=== PATIENT | male | born 1950 | race Asian ===

== ENCOUNTER 2016-09-11 21:16 | Emergency (ER) | payer OTHER, MEDICAID ==
[~2016-09-11] VITALS: Ht 165.1 cm; Wt 77.1 kg
[2016-09-11] MEDS ORDERED: LIPI20 PO (21:35)
[2016-09-11] MEDS ORDERED: LITHIUM CARBON300 MG PO (21:36)
[2016-09-11] MEDS ORDERED: METFORMIN HCL1000 MG PO (21:37)
[2016-09-11] MEDS ORDERED: LOSARTAN POTASS50 M1 PO (21:37)
[2016-09-11] MEDS ORDERED: ACTOS15 M1 PO (21:37)
[2016-09-11] MEDS ORDERED: CALCIUM CITRAT1 EAC7 PO (21:41)
[2016-09-11] MEDS ORDERED: CENTRUM SILVER1 EAC3 PO (21:41)
[2016-09-11] MEDS ORDERED: ASPIR 8181 MG PO (21:42)
[2016-09-11 21:56] LABS: BASOPHIL % 0.7 % (0-2); PLATELET COUNT 197 x10^3mcL (130-400); RED CELL DISTRIBUTION WIDTH 13.3 % (11.5-14.5)
[2016-09-11] MEDS ORDERED: BUPROPION HCL150 M1 PO (21:59)
[2016-09-11] MEDS ORDERED: PROPRANOLOL HCL20 MG PO (22:00)
[2016-09-11 22:04] LABS: CARBON DIOXIDE 28.3 mmol/L (21-32); CHLORIDE SERUM 109 mmol/L (98-107); CREATININE SERUM 1.5 mg/dL (0.7-1.3); GFR1 49 mL/min; GLUCOSE SERUM 121 mg/dL (74-106); POTASSIUM SERUM 5.3 mmol/L (3.5-5.1); SODIUM SERUM 145 mmol/L (136-145)
[2016-09-11 22:08] LABS: ALBUMIN 3.8 g/dL (3.4-5.0); ALKALINE PHOSPHATASE 62 U/L (46-116); ALT/SGPT 40 U/L (16-63); AST/SGOT 30 U/L (15-37); BILIRUBIN TOTAL 0.98 mg/dL (0.20-1.00); TOTAL PROTEIN, SERUM 7.2 g/dL (6.4-8.2)
[2016-09-11 22:11] LABS: CHOLESTEROL 106 mg/dL (<200)
[2016-09-12 05:13] LABS: FREE T4 1.24 ng/dL (0.76-1.46); FREE THYROXINE INDEX 3.2 ug/dL (1.4-4.5); T4(THYROXINE) 9.2 ug/dL (4.7-13.3)
[2016-09-12 05:15] LABS: T3 TOTAL 0.94 ng/mL
[2016-09-12 06:04] VITALS: BP 144/72
== END 2016-09-12 06:04 | disposition short-term general hospital (02) ==
LOC: ED 21:16
PROVIDERS: Family Medicine; Specialist
DX: S02.81XA Fracture of other specified skull and facial bones, right side, initial encounter for closed fracture (principal); S02.40EA Zygomatic fracture, right side, initial encounter for closed fracture; S01.81XA Laceration without foreign body of other part of head, initial encounter; R04.0 Epistaxis; R55 Syncope and collapse; I10 Essential (primary) hypertension; E11.9 Type 2 diabetes mellitus without complications; F99 Mental disorder, not otherwise specified; Z79.899 Other long term (current) drug therapy; Z79.84 Long term (current) use of oral hypoglycemic drugs; W01.0XXA Fall on same level from slipping, tripping and stumbling without subsequent striking against object, initial encounter; Y93.01 Activity, walking, marching and hiking; Y92.89 Other specified places as the place of occurrence of the external cause; Y99.8 Other external cause status
CPT/HCPCS: 82962; 83880; 84439; 90715; G0480; J0690; J2001; J2405; J3010